=== PATIENT | male | born 1985 | race Caucasian/White ===

== ENCOUNTER 2016-10-17 21:21 | Emergency (ER) | payer SELFPAY ==
[~2016-10-17] VITALS: Ht 165.1 cm; Wt 74.3 kg
[~2016-10-17 21:21] MED LIST: DOXYCYCLINE HY100 M3 PO; OXYCODONE HCL5 MG PO
[2016-10-17] MEDS ORDERED: NARCAN4 MG NS (23:28)
[2016-10-17 23:52] VITALS: BP 147/103
== END 2016-10-17 23:53 | disposition home or self-care (01) ==
LOC: EME → EDBD 21:21 → EME 21:21
DX: T40.1X1A Poisoning by heroin, accidental (unintentional), initial encounter (principal); F17.200 Nicotine dependence, unspecified, uncomplicated
CPT/HCPCS: 99281; 99285